=== PATIENT | male | born 1975 | race American Indian/Alaskan Native ===

== ENCOUNTER 2017-08-12 10:28 | Outpatient (CLI) | payer BC ==
[2017-08-12 10:50] LABS: Basophils % (Auto) 1.1 % (0.0-1.8); Eosinophils % (Auto) 1.6 % (0.0-4.3); Hemoglobin 14.4 gm/dl (11.8-15.2); Mean Corpuscular HGB Conc 34 % (32-34); Mean Corpuscular Hemoglobin 29 pg (28-32); Mean Corpuscular Volume 83 fl (84-94); Platelet Count 208 K/mm3 (140-440); Red Blood Count 5.04 M/mm3 (3.65-5.03); Red Cell Distribution Width 15.2 % (13.2-15.2); White Blood Count 6.7 K/mm3 (4.5-11.0)
[2017-08-12 11:15] LABS: Alanine Aminotransferase 17 units/L (7-56); Albumin 4.5 g/dL (3.9-5); Albumin/Globulin Ratio 1.7 %; Alkaline Phosphatase 57 units/L (35-129); BUN/Creatinine Ratio 14; Blood Urea Nitrogen 13 mg/dL (9-20); Calcium 8.7 mg/dL (8.4-10.2); Carbon Dioxide 27 mmol/L (22-30); Cholesterol 149 mg/dL (50-199); Glucose 215 mg/dL (75-100); HDL Cholesterol 71 mg/dL (40-59); LDL Cholesterol,Direct 57 mg/dL (50-130); Total Protein 7.2 g/dL (6.3-8.2); Triglycerides 109 mg/dL (2-149)
[2017-08-12 11:16] LABS: Anion Gap 18 mmol/L; Chloride 99.6 mmol/L (98-107); Potassium 4.1 mmol/L (3.6-5.0); Sodium 140 mmol/L (137-145)
== END 2017-08-12 10:29 | disposition home or self-care (01) ==
LOC: LAB 10:28
PROVIDERS: ATTEND Family Medicine
DX: E11.9 Type 2 diabetes mellitus without complications (principal)
CPT/HCPCS: 36415; 80053; 80061; 85025